=== PATIENT | male | born 1945 | race Caucasian/White ===

== ENCOUNTER → 2017-03-29 | Outpatient (CLI) | payer OTHER ==
[~2017-03-29] MED LIST: ADULT LOW DOSE81 M1 PO; Aspirin Chewable PO; DIAZEPAM5 MG PO; FLEXERIL10 MG PO; FLOMAX0.4 MG PO; Flexeril PO; INDERAL LA120 MG PO; Inderal LA PO; LISINOPRIL20 MG PO; LYRICA50 MG PO; Levaquin PO; MEDROL DOSEPAK4 MG PO; PERCOCET 5/31 TABLET PO; Percocet 5/325,Endoc PO; SKELAXIN800 MG PO; TORADOL10 MG PO; ULTRAM50 MG PO
== END | disposition home or self-care (01) ==
LOC: NUC 09:45
DX: M48.07 Spinal stenosis, lumbosacral region (principal); M25.78 Osteophyte, vertebrae; M43.17 Spondylolisthesis, lumbosacral region; M51.36 Other intervertebral disc degeneration, lumbar region; M41.85 Other forms of scoliosis, thoracolumbar region; G95.89 Other specified diseases of spinal cord; Z98.1 Arthrodesis status; Z98.890 Other specified postprocedural states; Z96.611 Presence of right artificial shoulder joint
CPT/HCPCS: 72081; 72114; 72131; 78315; A9503

== ENCOUNTER 2018-03-27 22:28 | Inpatient (IN) | payer OTHER ==
[~2018-03-27] VITALS: Ht 177.8 cm; Wt 94.3 kg
[~2018-03-27 22:28] MED LIST changes: -LISINOPRIL20 MG PO; +ZESTRIL40 MG PO
[2018-03-28 15:19] VITALS: BP 125/82
[2018-03-28 19:52] VITALS: BP 108/62
[2018-03-28 19:57] VITALS: BP 121/66
[2018-03-28 23:28] VITALS: BP 110/59
[2018-03-29 03:12] VITALS: BP 135/78
[2018-03-29 06:19] LABS: HEMATOCRIT 43.2 % (38.0-50.0); HEMOGLOBIN 14.3 G/DL (12.5-16.6); MCV 85.2 FL (86-99)
[2018-03-29 07:51] VITALS: BP 128/80
[2018-03-29] MEDS ORDERED: DILAUDID2 MG PO (08:32)
[2018-03-29] MEDS ORDERED: WARFARIN SODIU2.5 MG PO (08:32)
[2018-03-29 10:27] LABS: INTER. NORMALIZED RATIO 1.1
[2018-03-29 11:28] VITALS: BP 156/87
[2018-03-29 16:10] VITALS: BP 135/79
[2018-03-29 19:55] VITALS: BP 140/74
[2018-03-29 23:12] VITALS: BP 122/75
[2018-03-30 05:31] LABS: HEMATOCRIT 42.8 % (38.0-50.0); HEMOGLOBIN 13.9 G/DL (12.5-16.6); MCV 85.8 FL (86-99)
[2018-03-30 07:43] LABS: INTER. NORMALIZED RATIO 1.2
[2018-03-30 08:04] VITALS: BP 135/78
[2018-03-30] MEDS ORDERED: WARFARIN SODIU2.5 MG PO (08:55)
[2018-03-30 15:09] VITALS: BP 138/87
== END 2018-03-30 15:20 | disposition home or self-care (01) | DRG 483 ==
LOC: ENRESERV 22:28 → 2SOUTH 03-28 08:23 → 3EAST 03-28 08:27 → ENRESERV 03-28 13:44 → 3EAST 03-28 15:03 → 2SOUTH 03-28 15:34 → 3EAST 03-30 15:20
PROVIDERS: Orthopaedic Surgery
PROC: 0RRK00Z Replacement of Left Shoulder Joint with Reverse Ball and Socket Synthetic Substitute, Open Approach (ICD-10-PCS; principal; 2018-03-28)
DX: M12.9 Arthropathy, unspecified (principal); I10 Essential (primary) hypertension; Y93.K1 Activity, walking an animal; W01.0XXA Fall on same level from slipping, tripping and stumbling without subsequent striking against object, initial encounter; Z86.718 Personal history of other venous thrombosis and embolism; Z79.01 Long term (current) use of anticoagulants
CPT/HCPCS: 82948; 85014; 85018; 85610; C1713; J0330; J0690; J1100; J1170; J2250; J2405; J2710; J2795; J3010; J7030; J7050; J7643

== ENCOUNTER 2018-05-15 21:59 | Inpatient (IN) | payer OTHER ==
[~2018-05-15] VITALS: Ht 177.8 cm; Wt 88.5 kg
[~2018-05-15 21:59] MED LIST changes: +DILAUDID2 MG PO; +TYLENOL EXTRA500 MG PO; +WARFARIN SODIU2.5 MG PO
[2018-05-16 11:29] VITALS: BP 159/88
[2018-05-16 16:20] LABS: INTER. NORMALIZED RATIO 1.1
[2018-05-16 16:50] VITALS: BP 126/80
[2018-05-16 18:03] VITALS: BP 121/77
[2018-05-16 20:20] VITALS: BP 123/67
[2018-05-17] VITALS (7 sets, daily range): BP systolic 109–148; BP diastolic 62–85
[2018-05-17 05:28] LABS: HEMATOCRIT 41.1 % (38.0-50.0); HEMOGLOBIN 13.2 G/DL (12.5-16.6); MCV 86.3 FL (86-99)
[2018-05-18 03:52] VITALS: BP 121/69
[2018-05-18 04:38] LABS: HEMATOCRIT 39.3 % (38.0-50.0); HEMOGLOBIN 12.9 G/DL (12.5-16.6); MCV 86.4 FL (86-99)
[2018-05-18 07:40] VITALS: BP 108/64
[2018-05-18 12:01] VITALS: BP 106/67
== END 2018-05-18 13:18 | disposition home or self-care (01) | DRG 517 ==
LOC: CANRESERV 21:59 → ENRESERV 21:59 → 3WEST 05-16 09:56 → 2SOUTH 05-16 09:56 → ENRESERV 05-16 15:45 → CANRESERV 05-16 15:45 → 2SOUTH 05-16 15:59 → 3WEST 05-16 16:44 → ENRESERV 05-16 16:44 → 3WEST 05-18 13:18
PROVIDERS: Orthopaedic Surgery
PROC: 0RWK0JZ Revision of Synthetic Substitute in Left Shoulder Joint, Open Approach (ICD-10-PCS; principal; 2018-05-16)
DX: T84.028A Dislocation of other internal joint prosthesis, initial encounter (principal); Y83.1 Surgical operation with implant of artificial internal device as the cause of abnormal reaction of the patient, or of later complication, without mention of misadventure at the time of the procedure; Y79.2 Prosthetic and other implants, materials and accessory orthopedic devices associated with adverse incidents; Z96.612 Presence of left artificial shoulder joint; I10 Essential (primary) hypertension; N40.0 Benign prostatic hyperplasia without lower urinary tract symptoms; M19.90 Unspecified osteoarthritis, unspecified site; Z86.711 Personal history of pulmonary embolism; Z86.718 Personal history of other venous thrombosis and embolism; Z98.1 Arthrodesis status; Z96.89 Presence of other specified functional implants
CPT/HCPCS: 85014; 85018; 85610; C1776; J0131; J0330; J0690; J1170; J1885; J2405; J2710; J2765; J2795; J3010; J7030; J7050; J7120; J7643; Q0161

== ENCOUNTER 2018-05-20 10:58 | Observation (INO) | payer OTHER ==
[~2018-05-20] VITALS: Ht 177.8 cm; Wt 94.5 kg
[2018-05-20 11:50] LABS: BASOPHIL (%) 0.3 % (0-1); EOSINOPHIL (%) 0.6 % (0-5); EOSINOPHIL COUNT 0.1 K/uL (0-0.3); HEMATOCRIT 38.9 % (38.0-50.0); HEMOGLOBIN 12.9 G/DL (12.5-16.6); IMMATURE GRANULOCYTE (%) 0.6 % (0.0-0.7); LYMPHOCYTE (%) 6.5 % (15-42); LYMPHOCYTE COUNT 0.6 K/uL (1.0-2.8); MCH 28.7 PG (29.0-34.0); MCHC 33.2 G/DL (30.0-36.0); MCV 86.4 FL (86-99); MONOCYTE (%) 6.3 % (3-12); MONOCYTE COUNT 0.6 K/uL (0-0.8); NEUTROPHIL (%) 85.7 % (45-76); PLATELET COUNT 256 K/uL (156-360); RBC DIS.WIDTH-CV 13.8 % (11.8-14.6); RBC DIS.WIDTH-SD 43.7 % (39-53); WHITE BLOOD COUNT 9.3 K/uL (4.1-10.2)
[2018-05-20 12:16] LABS: CHLORIDE 100 MEQ/L (99-109); POTASSIUM 4.7 MEQ/L (3.7-5.4); SODIUM 135 MEQ/L (136-147)
[2018-05-20 12:21] LABS: CREATININE 0.9 MG/DL (0.6-1.3); GFR ESTIMATE (CALCULATED) > 59 mL/min/ (58.99-99999); GLUCOSE 151 mg/dL (70-99); UREA NITROGEN (BUN) 21 mg/dL (9-23)
[2018-05-20 12:32] LABS: APPEARANCE CLEAR ((CLEAR)); BILIRUBIN NEGATIVE; BLOOD NEGATIVE; COLOR YELLOW ((YELLOW)); GLUCOSE (STRIP) NEGATIVE; KETONES NEGATIVE; LEUKOCYTES NEGATIVE; NITRITE NEGATIVE; PROTEIN (STRIP) NEGATIVE; SPECIFIC GRAVITY 1.012 (1.000-1.030); UCUL ADDED? NO; UROBILINOGEN 0.2 MG/DL (0.2-1.0)
[2018-05-20] MEDS ORDERED: DILAUDID2 MG PO (16:02)
[2018-05-20] MEDS ORDERED: COUMADIN2.5 MG PO (16:02)
[2018-05-20] MEDS ORDERED: CHLORPROMAZINE25 MG PO (16:03)
[2018-05-20 17:05] LABS: INTER. NORMALIZED RATIO 1.2
[2018-05-20 19:27] VITALS: BP 106/61
[2018-05-20 23:23] VITALS: BP 103/68
[2018-05-21 06:06] LABS: INTER. NORMALIZED RATIO 1.4
[2018-05-21 06:35] LABS: HEMATOCRIT 38.2 % (38.0-50.0); HEMOGLOBIN 12.2 G/DL (12.5-16.6); MCH 28.2 PG (29.0-34.0); MCHC 31.9 G/DL (30.0-36.0); MCV 88.4 FL (86-99); RBC DIS.WIDTH-CV 13.9 % (11.8-14.6); RBC DIS.WIDTH-SD 45.1 % (39-53); RED BLOOD COUNT 4.32 M/uL (4.00-5.50); WHITE BLOOD COUNT 9.5 K/uL (4.1-10.2)
[2018-05-21 06:41] LABS: CHLORIDE 108 MEQ/L (99-109); CREATININE 0.7 MG/DL (0.6-1.3); GFR ESTIMATE (CALCULATED) > 59 mL/min/ (58.99-99999); POTASSIUM 4.5 MEQ/L (3.7-5.4); SODIUM 140 MEQ/L (136-147); UREA NITROGEN (BUN) 21 mg/dL (9-23)
[2018-05-21 06:48] LABS: GLUCOSE 108 mg/dL (70-99)
[2018-05-21 06:58] VITALS: BP 106/66
[2018-05-21 07:05] LABS: PLAT.SUFFICIENCY ADEQUATE
[2018-05-21 07:11] LABS: PLATELET COUNT 170 K/uL (156-360)
[2018-05-21] MEDS ORDERED: SENNA-DOCUSATE1 EAC1 PO (09:40)
[2018-05-21] MEDS ORDERED: DULCOLAX5 MG PO (09:40)
[2018-05-21] MEDS ORDERED: LINZESS145 MCG PO (09:40)
[2018-05-21 16:32] LABS: APPEARANCE CLEAR ((CLEAR)); BILIRUBIN NEGATIVE; BLOOD LARGE; COLOR STRAW ((YELLOW)); GLUCOSE (STRIP) NEGATIVE; KETONES NEGATIVE; LEUKOCYTES NEGATIVE; NITRITE NEGATIVE; PROTEIN (STRIP) NEGATIVE; SPECIFIC GRAVITY 1.006 (1.000-1.030); UROBILINOGEN 0.2 MG/DL (0.2-1.0)
[2018-05-21 17:08] LABS: BACTERIA RARE /HPF; EPITHELIAL CELLS NONE SEEN /HPF; MUCUS 1+ /LPF; RED BLOOD CELLS TNTC /HPF (0-5); UCUL ADDED? YES; WHITE BLOOD CELLS 0-5 /HPF (0-5)
[2018-05-21 17:25] VITALS: BP 103/58
[2018-05-21 19:39] VITALS: BP 105/64
[2018-05-21 23:53] VITALS: BP 115/68
[2018-05-22 04:26] VITALS: BP 128/71
[2018-05-22 06:22] LABS: INTER. NORMALIZED RATIO 1.5
[2018-05-22 07:33] VITALS: BP 112/55
[2018-05-22 11:45] VITALS: BP 105/62
[2018-05-22] MEDS ORDERED: LASIX40 MG PO (12:04)
== END 2018-05-22 13:36 ==
LOC: EME 10:58 → 5SOUTH 16:03 → EDOF 16:03 → 5SOUTH 16:03 → ENRESERV 16:05 → 5SOUTH 17:35
PROVIDERS: Emergency Medicine; Hospitalist; Internal Medicine
DX: N99.89 Other postprocedural complications and disorders of genitourinary system (principal); R33.8 Other retention of urine; Z96.612 Presence of left artificial shoulder joint; I95.9 Hypotension, unspecified; K59.00 Constipation, unspecified; R60.0 Localized edema; R53.1 Weakness; N40.1 Benign prostatic hyperplasia with lower urinary tract symptoms; N13.8 Other obstructive and reflux uropathy; Z86.718 Personal history of other venous thrombosis and embolism; Z86.711 Personal history of pulmonary embolism; I10 Essential (primary) hypertension; Z98.1 Arthrodesis status; Z97.8 Presence of other specified devices; Z87.891 Personal history of nicotine dependence; Z91.040 Latex allergy status; Z91.048 Other nonmedicinal substance allergy status
CPT/HCPCS: 71045; 73030; 80048; 81003; 83605; 85025; 85027; 85610; 87040; 87086; 93005; 93971; 97530 GO; 99281; 99285; G0378; G8978 GP CK; G8979 GP CI; G8980 GP CK; G8987 GO CM; G8988 GO CJ; G8989 GO CM; J1940; J2405; J7030; Q0161

== ENCOUNTER 2018-05-22 09:59 | Inpatient (IN) | payer OTHER ==
[~2018-05-22] VITALS: Ht 177.8 cm; Wt 97.6 kg
[~2018-05-22 09:59] MED LIST changes: +CHLORPROMAZINE25 MG PO; +COUMADIN2.5 MG PO; +DULCOLAX5 MG PO; +LINZESS145 MCG PO; +SENNA-DOCUSATE1 EAC1 PO
[2018-05-22] MEDS ORDERED: LASIX40 MG PO (12:04)
[2018-05-22 14:28] VITALS: BP 116/70
[2018-05-23 06:26] VITALS: BP 108/62
[2018-05-23 06:32] LABS: HEMATOCRIT 37.5 % (38.0-50.0); HEMOGLOBIN 12.1 G/DL (12.5-16.6); MCH 28.2 PG (29.0-34.0); MCHC 32.3 G/DL (30.0-36.0); MCV 87.4 FL (86-99); PLATELET COUNT 150 K/uL (156-360); RBC DIS.WIDTH-CV 13.8 % (11.8-14.6); RED BLOOD COUNT 4.29 M/uL (4.00-5.50); WHITE BLOOD COUNT 14.8 K/uL (4.1-10.2)
[2018-05-23 07:01] LABS: ALBUMIN 3.4 G/DL (3.2-4.8); ALKALINE PHOSPHATASE 103 IU/L (3-129); ALT (GPT) 11 IU/L (3-49); AST (GOT) 13 IU/L (2-34); CHLORIDE 101 MEQ/L (99-109); GFR ESTIMATE (CALCULATED) > 59 mL/min/ (58.99-99999); GLUCOSE 127 mg/dL (70-99); POTASSIUM 4.5 MEQ/L (3.7-5.4); SODIUM 137 MEQ/L (136-147); TOTAL BILIRUBIN 0.8 MG/DL (0.0-1.0); UREA NITROGEN (BUN) 25 mg/dL (9-23)
[2018-05-23 07:12] LABS: INTER. NORMALIZED RATIO 1.7
[2018-05-23 12:59] VITALS: BP 112/60
[2018-05-23 16:03] VITALS: BP 128/65
[2018-05-23 16:39] VITALS: BP 90/70
[2018-05-23 18:20] VITALS: BP 106/68
[2018-05-24 05:56] VITALS: BP 103/55
[2018-05-24 06:38] LABS: BASOPHIL (%) 0.1 % (0-1); EOSINOPHIL (%) 0.1 % (0-5); HEMATOCRIT 36.4 % (38.0-50.0); HEMOGLOBIN 11.9 G/DL (12.5-16.6); IMMATURE GRANULOCYTE (%) 0.9 % (0.0-0.7); LYMPHOCYTE COUNT 0.7 K/uL (1.0-2.8); MCH 28.2 PG (29.0-34.0); MCHC 32.7 G/DL (30.0-36.0); MCV 86.3 FL (86-99); MONOCYTE (%) 10.8 % (3-12); MONOCYTE COUNT 1.5 K/uL (0-0.8); NEUTROPHIL (%) 83.1 % (45-76); NEUTROPHIL COUNT 11.5 K/uL (1.8-6.4); PLATELET COUNT 175 K/uL (156-360); RBC DIS.WIDTH-CV 13.8 % (11.8-14.6); RBC DIS.WIDTH-SD 43.2 % (39-53); RED BLOOD COUNT 4.22 M/uL (4.00-5.50); WHITE BLOOD COUNT 13.8 K/uL (4.1-10.2)
[2018-05-24 06:58] LABS: CHLORIDE 100 MEQ/L (99-109); CREATININE 0.8 MG/DL (0.6-1.3); GFR ESTIMATE (CALCULATED) > 59 mL/min/ (58.99-99999); GLUCOSE 124 mg/dL (70-99); POTASSIUM 4.2 MEQ/L (3.7-5.4); SODIUM 135 MEQ/L (136-147); UREA NITROGEN (BUN) 30 mg/dL (9-23)
[2018-05-24 08:00] VITALS: BP 98/52
[2018-05-24 14:41] LABS: INTER. NORMALIZED RATIO 2.2
[2018-05-24 15:21] VITALS: BP 106/67
[2018-05-25 05:11] VITALS: BP 128/78
[2018-05-25 05:50] LABS: BASOPHIL (%) 0.3 % (0-1); EOSINOPHIL (%) 0.2 % (0-5); HEMATOCRIT 34.4 % (38.0-50.0); HEMOGLOBIN 11.2 G/DL (12.5-16.6); IMMATURE GRANULOCYTE (%) 0.8 % (0.0-0.7); LYMPHOCYTE (%) 6.5 % (15-42); LYMPHOCYTE COUNT 0.8 K/uL (1.0-2.8); MCH 28.1 PG (29.0-34.0); MCHC 32.6 G/DL (30.0-36.0); MCV 86.2 FL (86-99); MONOCYTE (%) 11.8 % (3-12); MONOCYTE COUNT 1.5 K/uL (0-0.8); NEUTROPHIL (%) 80.4 % (45-76); NEUTROPHIL COUNT 10.2 K/uL (1.8-6.4); PLATELET COUNT 181 K/uL (156-360); RBC DIS.WIDTH-CV 13.9 % (11.8-14.6); RBC DIS.WIDTH-SD 43.4 % (39-53); RED BLOOD COUNT 3.99 M/uL (4.00-5.50); WHITE BLOOD COUNT 12.7 K/uL (4.1-10.2)
[2018-05-25 06:10] LABS: INTER. NORMALIZED RATIO 2.2
[2018-05-25 06:13] LABS: CHLORIDE 98 MEQ/L (99-109); CREATININE 0.8 MG/DL (0.6-1.3); GFR ESTIMATE (CALCULATED) > 59 mL/min/ (58.99-99999); GLUCOSE 107 mg/dL (70-99); POTASSIUM 4.4 MEQ/L (3.7-5.4); SODIUM 135 MEQ/L (136-147); UREA NITROGEN (BUN) 30 mg/dL (9-23)
[2018-05-25 16:31] VITALS: BP 106/67
[2018-05-26 06:45] VITALS: BP 106/59
[2018-05-26 15:53] VITALS: BP 117/73
[2018-05-26] MEDS ORDERED: CIPROFLOXACIN500 M1 PO (17:24)
[2018-05-26] MEDS ORDERED: TYLENOL REGULA325 MG PO (17:25)
[2018-05-26] MEDS ORDERED: COUMADIN2.5 MG PO (17:25)
[2018-05-26] MEDS ORDERED: BISMATROL262 MG/15 PO (17:26)
[2018-05-26] MEDS ORDERED: POLYETHYLENE GL17 GM PO (17:27)
[2018-05-26] MEDS ORDERED: ANTIVERT25 MG PO (17:27)
[2018-05-26] MEDS ORDERED: ONDANSETRON ODT4 MG PO (17:28)
[2018-05-27 05:20] VITALS: BP 122/77
[2018-05-27 06:13] LABS: INTER. NORMALIZED RATIO 2.2
[2018-05-27 06:16] LABS: PTT 42.9 SEC (25-37)
[2018-05-27 14:40] LABS: ALBUMIN 3.3 G/DL (3.2-4.8); CHLORIDE 96 MEQ/L (99-109); CREATININE 0.8 MG/DL (0.6-1.3); GFR ESTIMATE (CALCULATED) > 59 mL/min/ (58.99-99999); GLUCOSE 109 mg/dL (70-99); POTASSIUM 4.6 MEQ/L (3.7-5.4); SODIUM 131 MEQ/L (136-147); TOTAL PROTEIN 5.8 G/DL (6.4-8.3); UREA NITROGEN (BUN) 24 mg/dL (9-23)
[2018-05-27 14:47] LABS: BASOPHIL (%) 0.5 % (0-1); BASOPHIL COUNT 0.1 K/uL (0-0.1); EOSINOPHIL (%) 0.4 % (0-5); EOSINOPHIL COUNT 0.1 K/uL (0-0.3); HEMATOCRIT 35.9 % (38.0-50.0); HEMOGLOBIN 11.9 G/DL (12.5-16.6); IMMATURE GRANULOCYTE (%) 1.6 % (0.0-0.7); LYMPHOCYTE (%) 6.7 % (15-42); LYMPHOCYTE COUNT 0.8 K/uL (1.0-2.8); MCH 28.3 PG (29.0-34.0); MCHC 33.1 G/DL (30.0-36.0); MCV 85.5 FL (86-99); MONOCYTE (%) 10.8 % (3-12); MONOCYTE COUNT 1.4 K/uL (0-0.8); NEUTROPHIL COUNT 10.1 K/uL (1.8-6.4); RBC DIS.WIDTH-CV 13.8 % (11.8-14.6); RBC DIS.WIDTH-SD 43.2 % (39-53); WHITE BLOOD COUNT 12.6 K/uL (4.1-10.2)
[2018-05-27 14:54] LABS: ALKALINE PHOSPHATASE 208 IU/L (3-129); ALT (GPT) 51 IU/L (3-49); AST (GOT) 52 IU/L (2-34); TOTAL BILIRUBIN 0.6 MG/DL (0.0-1.0)
[2018-05-27 15:06] VITALS: BP 120/70
[2018-05-27 15:24] LABS: HEMATOLOGY COMMENT 1 SN; PLAT.SUFFICIENCY ADEQUATE
[2018-05-27 15:26] LABS: PLATELET COUNT UNABLE TO REPORT K/uL (156-360)
[2018-05-27 16:06] VITALS: BP 111/69
== END 2018-05-27 18:25 | disposition short-term general hospital (02) | DRG 559 ==
LOC: 3WEST 09:59
PROVIDERS: Family Medicine Sports Medicine; Physical Medicine & Rehabilitation Pain Medicine
PROC: F07M0ZZ Range of Motion and Joint Mobility Treatment of Musculoskeletal System - Whole Body (ICD-10-PCS; principal; 2018-05-22)
DX: Z47.1 Aftercare following joint replacement surgery (principal); Z96.612 Presence of left artificial shoulder joint; R26.9 Unspecified abnormalities of gait and mobility; R53.1 Weakness; I82.220 Acute embolism and thrombosis of inferior vena cava; I82.413 Acute embolism and thrombosis of femoral vein, bilateral; I82.423 Acute embolism and thrombosis of iliac vein, bilateral; I82.890 Acute embolism and thrombosis of other specified veins; I95.9 Hypotension, unspecified; E83.51 Hypocalcemia; D64.9 Anemia, unspecified; E87.1 Hypo-osmolality and hyponatremia; N40.1 Benign prostatic hyperplasia with lower urinary tract symptoms; N13.8 Other obstructive and reflux uropathy; R33.8 Other retention of urine; G89.18 Other acute postprocedural pain; M25.512 Pain in left shoulder; K59.00 Constipation, unspecified; R42 Dizziness and giddiness; R11.0 Nausea; R63.0 Anorexia; J98.11 Atelectasis; I10 Essential (primary) hypertension; M54.40 Lumbago with sciatica, unspecified side; M19.90 Unspecified osteoarthritis, unspecified site; E66.9 Obesity, unspecified; Z68.30 Body mass index [BMI] 30.0-30.9, adult; R60.0 Localized edema; Z86.711 Personal history of pulmonary embolism; Z86.718 Personal history of other venous thrombosis and embolism; Z95.828 Presence of other vascular implants and grafts; Z96.89 Presence of other specified functional implants; Z98.1 Arthrodesis status; Z79.01 Long term (current) use of anticoagulants; Z87.891 Personal history of nicotine dependence; Z91.040 Latex allergy status
CPT/HCPCS: 74018; 74177; 80048; 80053; 84443; 85025; 85027; 85610; 85730; 87086; 97110 GO; 97530 GP; Q0161